=== PATIENT | male | born 1955 | race Caucasian/White ===

== ENCOUNTER → 2017-01-31 | Day surgery (SDC) | payer OTHER ==
[2017-01-31 09:10] LABS: CREATININE 1.2 mg/dL (0.7-1.2); POTASSIUM 4.4 mmol/L (3.5-5.1)
== END | disposition home or self-care (01) ==
LOC: FAS 08:15
PROVIDERS: Anesthesiology
DX: Z12.11 Encounter for screening for malignant neoplasm of colon (principal); I10 Essential (primary) hypertension; I25.2 Old myocardial infarction; Z79.82 Long term (current) use of aspirin; Z79.899 Other long term (current) drug therapy; Z95.1 Presence of aortocoronary bypass graft
CPT/HCPCS: 36415; 80048; J2704

== ENCOUNTER 2020-10-04 13:05 | Emergency (ER) | payer OTHER ==
[2020-10-04 14:15] LABS: BASOPHIL 0.7 % (0-2); EOSINOPHIL 1.1 % (0-7); HCT 42.7 % (42.0-52.0); HGB 14.5 g/dl (13.2-18.0); LYMPHOCYTE 9.9 % (15-48); MCH 30.9 pg (25.0-31.0); MONOCYTE 6.9 % (0-12); MPV 10.9 fL (6.0-9.5); NRBC 0; PLT 183 K/uL (150-400); RBC 4.69 M/uL (4.70-6.00); RDW 12.7 % (11.5-14.0); WBC 7.6 K/uL (4.0-10.5)
[2020-10-04 14:32] LABS: BUN/CREAT RATIO (CALC) 14.5 RATIO; CREATININE 1.1 mg/dL (0.67-1.17); POTASSIUM 4.3 mmol/L (3.5-5.1)
== END 2020-10-04 16:04 | disposition home or self-care (01) ==
LOC: FER 13:05
PROVIDERS: Emergency Medicine
DX: R20.2 Paresthesia of skin (principal); I25.2 Old myocardial infarction; Z79.82 Long term (current) use of aspirin; Z79.899 Other long term (current) drug therapy
CPT/HCPCS: 36415; 80048; 84484; 85025